=== PATIENT | female | born 1945 | race Caucasian/White ===

== ENCOUNTER 2024-01-08 04:59 | Inpatient (IN) | payer MEDICARE ==
[~2024-01-08] VITALS: Ht 170.2 cm; Wt 57.7 kg
[2024-01-08 05:25] LABS: BASOPHILS % 0.2 % (0.0-2.0); EOSINOPHILS % 6.8 % (0.0-5.0); HEMATOCRIT. 37.1 % (36.0-48.0); HEMOGLOBIN. 12.4 g/dL (12.0-16.0); LYMPHOCYTES % 30.8 % (20.0-50.0); MEAN CORPUSCULAR HEMOGLOBIN 32.1 pg (28.0-32.0); MEAN CORPUSCULAR HGB CONC 33.5 g/dL (31.0-37.0); MEAN CORPUSCULAR VOLUME 95.7 fL (81.0-99.0); MEAN PLATELET VOLUME 7.9 fl (7.4-10.4); NEUTROPHILS % 56.2 % (40.0-76.0); PLATELET 270 x1000/uL (130-400); RED BLOOD CELL COUNT 3.88 mill/uL (4.2-5.4); RED CELL DISTRIBUTION WIDTH 13.7 % (11.6-14.6); WHITE BLOOD COUNT 9.8 x1000/uL (4.5-11.0)
[2024-01-08 05:33] LABS: CHLORIDE 104 mEq/L (98-107); POTASSIUM 3.2 mEq/L (3.5-5.1); SODIUM 140 mEq/L (136-145)
[2024-01-08 05:34] LABS: CALCIUM 9.1 mg/dL (8.7-10.4); CARBON DIOXIDE 27 mEq/L (21-32)
[2024-01-08] MEDS: DILTIAZEM HCL 5MG/ML 5ML VIAL IV ONE ×2 (05:37→07:39)
[2024-01-08 05:39] LABS: CREATININE 0.7 mg/dL (0.6-1.0); GLUCOSE 186 mg/dL (70-105); UREA NITROGEN BLOOD 10 mg/dL (9-23)
[2024-01-08] MEDS: SODIUM CHLORIDE 0.9% 1,000 ML IV ONE (05:46)
[2024-01-08] MEDS: ASPIRIN 81MG TABLET PO ONE (05:46)
[2024-01-08 05:57] LABS: PROTHROMBIN TIME 11.1 sec (9.6-11.0)
[2024-01-08 06:01] LABS: BG BASE EXCESS -3.5 mmol/L (-2.0-3.0); BG CARBOXYHEMOGLOBIN 0.5 % (0.5-1.5); BG DEOXYHEMOGLOBIN 0.7 % (0.0-5.0); BG FRACTION INSPIRED OXYGEN 100; BG HCO3 ACT 20.4 mmol/L (21.0-28.0); BG METHEMOGLOBIN 0.3 % (0.5-1.5); BG OXYGEN SATURATION 99.3 % (94.0-98.0); BG OXYHEMOGLOBIN 98.5 % (94.0-98.0); BG PCO2 33.1 mmHg (32.0-45.0); BG PH 7.407 (7.350-7.450); BG PO2 203.8 mmHg (83.0-108.0); BG TOTAL HEMOGLOBIN 12.4 g/dL (12.0-16.0); BG VENT MODE MASK - NRB
[2024-01-08 06:33] LABS: TROPONIN I HIGH SENSITIVITY 45 ng/L (3.0-34)
[2024-01-08] MEDS: SODIUM CHLORIDE 0.9% 500 ML IV ONE (07:41)
[2024-01-08 08:18] LABS: TROPONIN I HIGH SENSITIVITY 118 ng/L (3.0-34)
[2024-01-08 09:36] LABS: TROPONIN I HIGH SENSITIVITY 369 ng/L (3.0-34)
[2024-01-08] MEDS ORDERED: ACETAMINOPHEN 325MG TABLET PO PRN (17:00)
[2024-01-08] MEDS ORDERED: IPRATROPIUM/ALBUTEROL 0.5-3(2.5)MG/3ML NEB HHN PRN (17:00)
[2024-01-08] MEDS ORDERED: ONDANSETRON HCL 4MG/2ML INJ IV PRN (17:00)
[2024-01-08] MEDS ORDERED: DIPHENHYDRAMINE 50MG/ML VIAL IV PRN (17:00)
[2024-01-08] MEDS: FUROSEMIDE 40MG/4ML VIAL IVP SCH (17:44)
[2024-01-08] MEDS: ISOSORBIDE MONONITRATE 30MG TABLET SR 24HR PO SCH (17:44)
[2024-01-08] MEDS ORDERED: ENOXAPARIN 40MG/0.4ML SYR SUBCUT SCH (18:00)
[2024-01-08] MEDS: ENOXAPARIN 80MG/0.8ML SYR SUBCUT SCH (18:10)
[2024-01-08 21:33] VITALS: BP 131/67; PULSE 62; RESP 18; TEMP 36.61404; O2SAT 96
[2024-01-08] MEDS: ATORVASTATIN CALCIUM 40MG TABLET PO SCH (22:16)
[2024-01-08 22:49] LABS: TROPONIN I HIGH SENSITIVITY 3682 ng/L (3.0-34)
[2024-01-09] VITALS: BP_SYST 123; BP_SYST 149; BP_DIAS 62; BP_DIAS 69; PULSE 66; PULSE 71; RESP 18; RESP 19; TEMP 36.83628; TEMP 37.00296; O2SAT 98
[2024-01-09] MEDS ORDERED: ALBU18HF2 IH (01:33)
[2024-01-09] MEDS ORDERED: CARV3.1242 PO (01:36)
[2024-01-09] MEDS ORDERED: SACU1TAB MT (01:36)
[2024-01-09] MEDS ORDERED: MELO-106 PO (01:36)
[2024-01-09] MEDS ORDERED: LIP40 PO (01:36)
[2024-01-09] MEDS ORDERED: CLOR7.5T5 PO (01:36)
[2024-01-09] MEDS ORDERED: LEVO112T7 PO (01:36)
[2024-01-09 01:52] VITALS: BP 123/69; PULSE 71; RESP 17; TEMP 37.0296
[2024-01-09] MEDS ORDERED: *PATIENT'S OWN MEDICATION STORAGE XX SCH (02:30)
[2024-01-09 04:00] VITALS: BP 160/67; PULSE 63; RESP 20; TEMP 36.28068; O2SAT 98
[2024-01-09 05:44] LABS: CARBON DIOXIDE 28 mEq/L (21-32); CHLORIDE 105 mEq/L (98-107)
[2024-01-09 05:45] LABS: POTASSIUM 2.9 mEq/L (3.5-5.1); SODIUM 141 mEq/L (136-145)
[2024-01-09 05:46] LABS: CALCIUM 8.9 mg/dL (8.7-10.4)
[2024-01-09 05:50] LABS: CREATININE 0.5 mg/dL (0.6-1.0); GLUCOSE 80 mg/dL (70-105)
[2024-01-09 05:51] LABS: UREA NITROGEN BLOOD 11 mg/dL (9-23)
[2024-01-09 05:55] LABS: TROPONIN I HIGH SENSITIVITY 3562 ng/L (3.0-34)
[2024-01-09 06:21] LABS: BASOPHILS % 0.7 % (0.0-2.0); EOSINOPHILS % 6.9 % (0.0-5.0); HEMATOCRIT. 33.6 % (36.0-48.0); HEMOGLOBIN. 11.3 g/dL (12.0-16.0); LYMPHOCYTES % 20.2 % (20.0-50.0); MEAN CORPUSCULAR HEMOGLOBIN 32.1 pg (28.0-32.0); MEAN CORPUSCULAR HGB CONC 33.5 g/dL (31.0-37.0); MEAN CORPUSCULAR VOLUME 95.8 fL (81.0-99.0); MEAN PLATELET VOLUME 8.1 fl (7.4-10.4); MONOCYTES % 8.1 % (2.0-8.0); NEUTROPHILS % 64.1 % (40.0-76.0); PLATELET 275 x1000/uL (130-400); RED BLOOD CELL COUNT 3.51 mill/uL (4.2-5.4); RED CELL DISTRIBUTION WIDTH 13.5 % (11.6-14.6); WHITE BLOOD COUNT 10.6 x1000/uL (4.5-11.0)
[2024-01-09 08:00] VITALS: BP 159/72; PULSE 69; RESP 17; TEMP 36.33624; O2SAT 98
[2024-01-09] MEDS: ASPIRIN 81MG TABLET PO SCH (09:10)
[2024-01-09] MEDS: POTASSIUM CHLORIDE 20MEQ/PACKET PO NR (09:27)
[2024-01-09 12:00] VITALS: BP 115/69; PULSE 76; RESP 16; TEMP 36.44736; O2SAT 98
[2024-01-09] MEDS ORDERED: LIDOCAINE HCL 1% 20ML VIAL ONE (13:14)
[2024-01-09] MEDS ORDERED: IODIXANOL 320MG/ML 100 ML BOTTLE IV ONE (13:14)
[2024-01-09] MEDS ORDERED: VERAPAMIL HCL 2.5 MG/1 ML 2ML VIAL IV ONE (13:14)
[2024-01-09] MEDS ORDERED: HEPARIN 1000 UNITS/ML 10ML ONE (13:15)
[2024-01-09] MEDS ORDERED: MIDAZOLAM HCL 2 MG/2 ML VIAL ONE (13:15)
[2024-01-09] MEDS ORDERED: FENTANYL CITRATE/PF 50MCG/ML 2ML VIAL ONE (13:15)
[2024-01-09] MEDS ORDERED: ATROPINE SULFATE 1MG/10ML SYR IV PRN (14:15)
[2024-01-09 20:00] VITALS: BP 113/59; PULSE 76; RESP 18; TEMP 36.61404; O2SAT 98
[2024-01-10] VITALS: BP 140/61; PULSE 61; RESP 19; TEMP 36.3918; O2SAT 98
[2024-01-10 04:00] VITALS: BP 163/66; PULSE 67; RESP 19; TEMP 36.72516; O2SAT 98
[2024-01-10] MEDS: CLONIDINE 0.1MG TABLET PO PRN (04:53)
[2024-01-10 05:45] VITALS: PULSE 85; RESP 18; O2SAT 98
[2024-01-10 08:00] VITALS: BP 132/65; PULSE 71; RESP 18; TEMP 36.61404; O2SAT 97
[2024-01-10 12:00] VITALS: BP 118/68; PULSE 75; RESP 18; TEMP 36.6696; TEMP 36.66960; O2SAT 96
[2024-01-10] MEDS ORDERED: ISOS30TA91 PO (12:01)
[2024-01-10] MEDS ORDERED: ASPI-1160 PO (12:01)
[2024-01-10 12:20] VITALS: BP 118/68; PULSE 75; TEMP 98.1; O2SAT 96
== END 2024-01-10 12:50 | disposition home or self-care (01) | DRG 281 ==
LOC: ER 04:59 → 5WST 11:39 → 7EST 22:10
PROVIDERS: ADMIT Family Medicine Adult Medicine; ATTEND Family Medicine Adult Medicine
PROC: 4A023N7 Measurement of Cardiac Sampling and Pressure, Left Heart, Percutaneous Approach (ICD-10-PCS; principal; 2024-01-09)
PROC: B211YZZ Fluoroscopy of Multiple Coronary Arteries using Other Contrast (ICD-10-PCS; 2024-01-09)
PROC: 4A02XM4 Measurement of Cardiac Total Activity, External Approach (ICD-10-PCS; 2024-01-09)
DX: I21.4 Non-ST elevation (NSTEMI) myocardial infarction (principal); I16.1 Hypertensive emergency; R65.10 Systemic inflammatory response syndrome (SIRS) of non-infectious origin without acute organ dysfunction; I48.91 Unspecified atrial fibrillation; I11.0 Hypertensive heart disease with heart failure; I50.9 Heart failure, unspecified; E11.9 Type 2 diabetes mellitus without complications; J44.9 Chronic obstructive pulmonary disease, unspecified; F17.200 Nicotine dependence, unspecified, uncomplicated; I25.10 Atherosclerotic heart disease of native coronary artery without angina pectoris; E87.6 Hypokalemia; E78.5 Hyperlipidemia, unspecified; Z98.82 Breast implant status; Z88.2 Allergy status to sulfonamides
CPT/HCPCS: 36415; 36600; 71045; 80048; 82375; 82805; 83605; 83880; 84484; 85025; 85347; 93005; 93306; 93458; 93571; 93970; 94640; 99291; C1769; C1887; C1893; J1644; J1650; J1940; J2250; J3010; J3490; J7030; J7040; Q9967